=== PATIENT | female | born 1980 | race Caucasian/White ===

== ENCOUNTER 2018-03-18 16:38 | Inpatient (IN) | payer MEDICAID, SELFPAY ==
[2018-03-18 16:39] VITALS: BP 125/69; PULSE 90; RESP 16; TEMP 36.8; O2SAT 97; BMI 19.7
[2018-03-18] MEDS: LORazepam 2 MG/ML Syringe 1 MG IV (17:44)
[2018-03-18] MEDS: Ondansetron 4 MG/2 ML Vial IV (17:44)
[2018-03-18 17:49] LABS: Absolute Lymphocyte Count 1.94 X10^3/ul (0.83-4.51); Absolute Neutrophil Count 3.2 X10^3/uL (2.0-7.7); Basophil# 0.01 X10^3/uL; Basophil% 0.2 % (0-1); Eosinophil# 0.02 X10^3/uL; Eosinophils% 0.4 % (0-5); Hemoglobin 14.3 g/dl (12.0-15.0); Lymphocyte # 1.94 X10^3/ul (4.0); Lymphocyte % 35.3 % (19-41); Mean Corp Hgb Conc 34.9 g/gl (32-36); Mean Corpuscular Hgb 28.8 pg (27.0-32.0); Mean Corpuscular Volume 82.5 fL (81-99); Mean Platelet Vol. 8.9 fl (6.2-12.0); Monocyte# 0.33 X10^3/uL; Neutrophil # 3.18 X10^3/uL (2.7-7.7); Neutrophil % 57.7 % (47-70); POSITIVE COUNT NO; POSITIVE DIFFERENTIAL NO; POSITIVE MORPHOLOGY NO; Platelet Count 243 K/mm3 (150-450); RBC Distribution Width CV 14.1 % (11.6-14.6); Red Blood Count 4.97 M/mm3 (4.2-5.4); White Blood Count 5.5 K/mm3 (4.4-11.0)
--- NOTE | 2018-03-18 17:54 | ED.VISSUMM ---
- ER Visit Summary Date of Service: 03/18/18 Chief Complaint: Detox for heroin and alcohol History of Present Illness: The patient is a 38 F who presents for admission to [facility] for detox of heroin and alcohol. Patient has been in touch with them this week and was told to come to the emergency department for evaluation. Patient states that she last used heroin at 3 AM, and that she took half a shot of alcohol 4 hours prior to presentation due to symptoms from alcohol withdrawal. She is currently complaining of chills, sweating, abdominal pain, abdominal cramping, nausea, vomiting, diarrhea, leg and arm cramping, and anxiety. She has history of hysterectomy. Physical Examination: Vital signs: afebrile, hemodynamically stable, no hypoxia on room air General: well nourished, well developed, in no distress, appears mildly agitated Skin: warm, moist, no rash, no pallor HEENT: normocephalic and atraumatic; PERRL, EOMI, moist mucous membranes Cardiovascular: regular rate and rhythm without murmurs, no peripheral edema, 2+ pulses all distal extremities Respiratory: No increased work of breathing, lungs are clear to auscultation bilaterally, no rales, rhonchi or wheezing Abdominal: Abdomen is soft, nontender with normoactive bowel sounds, no guarding or rebound, no masses MSK: Moves all extremities, no deformities, normal strength, mild tremulousness of the hands Neuro: Awake and alert, oriented ?4. No facial droop, sensation and motor function intact and symmetric Psych: no SI/HI. Agitated Test Results: Abnormal Lab Results 03/18/18 03/18/18 03/18/18 17:40 17:40 17:40 WBC 5.5 RBC 4.97 Hgb 14.3 Hct 41.0 MCV 82.5 MCH 28.8 MCHC 34.9 RDW 14.1 RDW Differential 42.0 Plt Count 243 MPV 8.9 Immature Gran % (Auto) 0.400 Neut % (Auto) 57.7 Lymph % (Auto) 35.3 [place] % (Auto) 6.0 Eos % (Auto) 0.4 Baso % (Auto) 0.2 Absolute Neuts (auto) 3.2 Absolute Lymphs (auto) 1.94 Total Counted Not Reportable Sodium 141 Potassium 4.5 Chloride 105 Carbon Dioxide 30.0 Anion Gap 6 BUN 8 Creatinine 0.76 Estim Creat Clear Calc 79.14 Est GFR (MDRD) Af Amer 111 Est GFR (MDRD) Non-Af 92 BUN/Creatinine Ratio 10.6 Glucose 95 Calcium 9.5 Total Bilirubin 0.50 AST 23 ALT 31 Alkaline Phosphatase 104 Total Protein 8.6 H Albumin 3.8 Globulin 4.8 H Albumin/Globulin Ratio 0.8 L Urine Opiates Screen Urine Methadone Screen Ur Barbiturates Screen Ur Phencyclidine Scrn Ur Amphetamines Screen U Methamphetamin-MDMA U Benzodiazepines Scrn Urine Cocaine Screen U Cannabinoids Screen Ur Drug Screen Comment Ethyl Alcohol < 3.0 03/18/18 17:45 WBC RBC Hgb Hct MCV MCH MCHC RDW RDW Differential Plt Count MPV Immature Gran % (Auto) Neut % (Auto) Lymph % (Auto) [place] % (Auto) Eos % (Auto) Baso % (Auto) Absolute Neuts (auto) Absolute Lymphs (auto) Total Counted Sodium Potassium Chloride Carbon Dioxide Anion Gap BUN Creatinine Estim Creat Clear Calc Est GFR (MDRD) Af Amer Est GFR (MDRD) Non-Af BUN/Creatinine Ratio Glucose Calcium Total Bilirubin AST ALT Alkaline Phosphatase Total Protein Albumin Globulin Albumin/Globulin Ratio Urine Opiates Screen NEGATIVE Urine Methadone Screen NEGATIVE Ur Barbiturates Screen NEGATIVE Ur Phencyclidine Scrn NEGATIVE Ur Amphetamines Screen NEGATIVE U Methamphetamin-MDMA NEGATIVE U Benzodiazepines Scrn NEGATIVE Urine Cocaine Screen POSITIVE H U Cannabinoids Screen NEGATIVE Ur Drug Screen Comment Ethyl Alcohol Emergency Department Course and Treatment: Patient presented just prior to 5 PM, and was discussed briefly with front desk representative from [facility]. They are aware she was going to try to come in some day this week, and states that her insurance has been cleared. Patient was evaluated for withdrawal symptoms, and has a CINA of 17. She was given IV Ativan and Zofran to help with symptomatic relief and to help prevent alcohol withdrawal symptoms. No concerning findings on lab work. Patient's tox screen was positive for cocaine. Alcohol level negative. Patient was discussed with the hospitalist and admitted for management of her withdrawal symptoms until she can be evaluated by [facility] in the AM. Treatment Plan: [] Disposition: Admission Impression: Heroin and alcohol withdrawal/detox This note was generated with [employer] dictation software. It may contain incorrect words, spelling, and punctuation that were not noted in review of the chart prior to signing ED Disposition - Plan for ED Patient: Disposition: Acute Care Hospital [facility] Chief Complaint: Substance Abuse
--- NOTE | 2018-03-18 17:58 | ED.DCSUM_ITS ---
- ER Visit Summary Date of Service: 03/18/18 Chief Complaint: Detox for heroin and alcohol History of Present Illness: The patient is a 38 F who presents for admission to [facility] for detox of heroin and alcohol. Patient has been in touch with them this week and was told to come to the emergency department for evaluation. Patient states that she last used heroin at 3 AM, and that she took half a shot of alcohol 4 hours prior to presentation due to symptoms from alcohol withdrawal. She is currently complaining of chills, sweating, abdominal pain, abdominal cramping, nausea, vomiting, diarrhea, leg and arm cramping, and anxiety. She has history of hysterectomy. Physical Examination: Vital signs: afebrile, hemodynamically stable, no hypoxia on room air General: well nourished, well developed, in no distress, appears mildly agitated Skin: warm, moist, no rash, no pallor HEENT: normocephalic and atraumatic; PERRL, EOMI, moist mucous membranes Cardiovascular: regular rate and rhythm without murmurs, no peripheral edema, 2 + pulses all distal extremities Respiratory: No increased work of breathing, lungs are clear to auscultation bilaterally, no rales, rhonchi or wheezing Abdominal: Abdomen is soft, nontender with normoactive bowel sounds, no guarding or rebound, no masses MSK: Moves all extremities, no deformities, normal strength, mild tremulousness of the hands Neuro: Awake and alert, oriented ?4. No facial droop, sensation and motor function intact and symmetric Psych: no SI/HI. Agitated Test Results: Abnormal Lab Results 03/18/18 03/18/18 03/18/18 17:40 17:40 17:40 WBC 5.5 RBC 4.97 Hgb 14.3 Hct 41.0 MCV 82.5 MCH 28.8 MCHC 34.9 RDW 14.1 RDW Differential 42.0 Plt Count 243 MPV 8.9 Immature Gran % (Auto) 0.400 Neut % (Auto) 57.7 Lymph % (Auto) 35.3 [place] % (Auto) 6.0 Eos % (Auto) 0.4 Baso % (Auto) 0.2 Absolute Neuts (auto) 3.2 Absolute Lymphs (auto) 1.94 Total Counted Not Reportable Sodium 141 Potassium 4.5 Chloride 105 Carbon Dioxide 30.0 Anion Gap 6 BUN 8 Creatinine 0.76 Estim Creat Clear Calc 79.14 Est GFR (MDRD) Af Amer 111 Est GFR (MDRD) Non-Af 92 BUN/Creatinine Ratio 10.6 Glucose 95 Calcium 9.5 Total Bilirubin 0.50 AST 23 ALT 31 Alkaline Phosphatase 104 Total Protein 8.6 H Albumin 3.8 Globulin 4.8 H Albumin/Globulin Ratio 0.8 L Urine Opiates Screen Urine Methadone Screen Ur Barbiturates Screen Ur Phencyclidine Scrn Ur Amphetamines Screen U Methamphetamin-MDMA U Benzodiazepines Scrn Urine Cocaine Screen U Cannabinoids Screen Ur Drug Screen Comment Ethyl Alcohol < 3.0 03/18/18 17:45 WBC RBC Hgb Hct MCV MCH MCHC RDW RDW Differential Plt Count MPV Immature Gran % (Auto) Neut % (Auto) Lymph % (Auto) [place] % (Auto) Eos % (Auto) Baso % (Auto) Absolute Neuts (auto) Absolute Lymphs (auto) Total Counted Sodium Potassium Chloride Carbon Dioxide Anion Gap BUN Creatinine Estim Creat Clear Calc Est GFR (MDRD) Af Amer Est GFR (MDRD) Non-Af BUN/Creatinine Ratio Glucose Calcium Total Bilirubin AST ALT Alkaline Phosphatase Total Protein Albumin Globulin Albumin/Globulin Ratio Urine Opiates Screen NEGATIVE Urine Methadone Screen NEGATIVE Ur Barbiturates Screen NEGATIVE Ur Phencyclidine Scrn NEGATIVE Ur Amphetamines Screen NEGATIVE U Methamphetamin-MDMA NEGATIVE U Benzodiazepines Scrn NEGATIVE Urine Cocaine Screen POSITIVE H U Cannabinoids Screen NEGATIVE Ur Drug Screen Comment Ethyl Alcohol Emergency Department Course and Treatment: Patient presented just prior to 5 PM , and was discussed briefly with community representative from [facility]. They are aware she was going to try to come in some day this week, and states that her insurance has been cleared. Patient was evaluated for withdrawal symptoms, and has a CINA of 17. She was given IV Ativan and Zofran to help with symptomatic relief and to help prevent alcohol withdrawal symptoms. No concerning findings on lab work. Patient's tox screen was positive for cocaine. Alcohol level negative. Patient was discussed with the hospitalist and admitted for management of her withdrawal symptoms until she can be evaluated by [facility] in the AM. Treatment Plan: [] Disposition: Admission Impression: Heroin and alcohol withdrawal/detox This note was generated with [employer] dictation software. It may contain incorrect words, spelling, and punctuation that were not noted in review of the chart prior to signing ED Disposition - Plan for ED Patient: Disposition: Acute Care Hospital [facility] Chief Complaint: Substance Abuse
[2018-03-18 18:05] LABS: ALB/GLOB Ratio 0.8 RATIO (0.9-2.4); AST(SGOT) 23 U/L (15-37); Alanine Aminotransfer ALT/SGPT 31 U/L (13-56); Albumin, Serum 3.8 g/dL (3.2-5.0); Alkaline Phosphatase 104 U/L (45-117); Anion Gap 6 (5-15); BUN 8 mg/dL (7-18); BUN/Creat Ratio 10.6 RATIO (10-20); Calcium,Total 9.5 mg/dL (8.5-10.1); Chloride 105 mmol/L (98-107); Creatinine, Serum 0.76 mg/dL (0.55-1.02); EST Glomerular Filtration Rate 92 mL/min (>60); Est Glom Filt Rate - Afr Amer 111 mL/min (>60); Estimated Creatinine Clearance 79.14 ml/min; Globulin 4.8 g/dL (2.2-4.2); Glucose 95 mg/dL (74-106); Potassium 4.5 mmol/L (3.5-5.1); Protein, Total 8.6 g/dL (6.4-8.2); Sodium Level 141 mmol/L (136-145)
[2018-03-18 18:20] LABS: Amphetamine Urine VISTA NEGATIVE (<1000 ng/mL); Barbiturate Urine VISTA NEGATIVE (< 200 ng/mL); Benzodiazepine Urine VISTA NEGATIVE (< 200 ng/mL); Cocaine Urine VISTA POSITIVE (< 300 ng/mL); Ecstacy Urine VISTA NEGATIVE (< 500 ng/mL); Methadone Urine VISTA NEGATIVE (< 300 ng/mL); PCP Urine VISTA NEGATIVE (< 25 ng/mL); THC Urine VISTA NEGATIVE (< 50 ng/mL); Vista UDS pH Range 6
[2018-03-18 18:25] LABS: Alcohol, Blood (Medical)-Serum < 3.0 mg/dL
[2018-03-18] MEDS: LORazepam 1 MG Tablet PO (19:00)
[2018-03-18 19:02] VITALS: BP 104/65; PULSE 85; PULSE 90; RESP 18; O2SAT 95; O2SAT 96
--- NOTE | 2018-03-18 19:22 | PCM.HP.STD ---
Problem List (1) Alcohol withdrawal Status: Acute (2) Heroin withdrawal Status: Acute History of Present Illness Date of Admission: 03/18/18 Chief Complaint: heroin and alcohol withdrawal The patient is a 38 year old F who injects in snorts heroin drinks either 1/5 to a handle of vodka per day. Presents seeking treatment for withdrawal from both of these substances. Patient's last use of heroin was around 2-3 this morning as well as her typical consumption of alcohol. Patient was having significant anxiety and then was told by the Rudolph Gifford to drink a little bit more to take some the edge off of her withdrawal before coming into the program. Patient states that she drank about half of a shot before doing so. Patient was referred to the emergency room by Rudolph Gifford later in the afternoon. In the emergency room patient received a DPT shot, 2 mg of Ativan and Zofran. [] Past Medical History Medical History: Medical History (Last Updated 03/18/18 @ 19:25 by Chay Hoskins DO) History of radical hysterectomy Z90.710 Ovarian cancer C56.9 With metastasis to her stomach and liver. 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 Denies: Sinus Congestion, Sinus Drainage Cardiovascular: Denies: Chest Pain, Palpitations Respiratory: Denies: Cough, Shortness of Breath, Shortness of breath at rest Gastrointestinal: Reports: Nausea, - - Abdominal cramps Genitourinary: Denies: Dysuria, Hematuria Gynecological: Reports: - - No menstrual period status post hysterectomy Musculoskeletal: Reports: - - Diffuse myalgias. Denies: Joint Pain, Joint Tenderness Skin: Denies: Rash, Wounds Neurological: Denies: Numbness, Tingling, Focal weakness Psychiatric: Reports: Anxiety. Denies: Depression Endocrine: Denies: Change in Body Habitus Hematologic/ Lymphatic: Denies: Easy Bruising, Easy Bleeding, Hx of blood clot Comment: All review of systems are negative except as mentioned in the history of present illness and the other review of systems. VTE Information - Inpt Only VTE Present on Admission: No VTE Mechan Device Prophylaxis: None VTE Pharm Prophylaxis ordered?: No Patient Problems: Active and Suspected Problems Alcohol withdrawal (Acute) Heroin withdrawal (Acute) - Physical Exam General: Alert, - - Anxious. Afebrile. HEENT: Atraumatic, Normocephalic, - - No icterus Oral: Moist Mucosa, No Gingival or Mucosal Lesions/ Ulcerations Neck: No Nodes, Thyroid Normal Size and Texture Lungs: Clear to auscultation, Normal air movement, No rhonchi, No wheeze Cardiovascular: Regular rate, Regular Rhythm, Normal S1, Normal S2, No murmurs Abdomen: Bowel Sounds Present, Soft, Non Tender, Non-Distended, No Hepato-splenomegaly Extremities: No edema, No Calf Tenderness Skin: No rashes, No breakdown Musculoskeletal: No Tenderness to Palpation of Joints or Extremities, No Muscle Wasting Neurological: Neuro grossly intact, Sensory exam intact to light touch and pain, Coordination normal Psych/Mental Status: Appropriate, Anxious Vital Signs Temp Pulse Resp BP Pulse Ox 36.8 C 90 18 104/65 96 03/18/18 16:39 03/18/18 19:02 03/18/18 19:02 03/18/18 19:02 03/18/18 19:02 Assessment/Plan All Active Problems Alcohol withdrawal (Acute) Heroin withdrawal (Acute) 1. Acute alcohol withdrawal calculated CIWA of 21 Start Librium taper Did discuss with the patient that alcohol withdrawal symptoms can become very severe up to 96 hours after last drink but more commonly within the first several hours. I did discuss if there are things to get worse that we may have to escalate her therapy be on the Librium 2. Acute heroin withdrawal Difficult to tease out how much her symptoms are solely due to alcohol or heroin But given the large quantities of alcohol that she does drink alcohol is the most concerning Patient will be on the Subutex medical stabilization protocol And she will have additional medications to help with other somatic complaints 3. History of ovarian cancer Patient underwent a radical hysterectomy Had known metastatic lesions in her as well as her liver Patient states that she has been in remission for the past 9 months Recommend patient follow-up with her oncologist for follow-up but also for further evaluation of things such as breast cancer. It is unclear what the patient has BRCA or not 4. DVT prophylaxis: Low risk. Patient will be ambulatory. Code Visit Inpatient E&M: 64668 Init Hosp L3
[2018-03-18 19:27] VITALS: BMI 19.9
[2018-03-18 19:40] VITALS: BP 102/72; PULSE 82; RESP 14; TEMP 37; O2SAT 98
[2018-03-18] MEDS: traZODone 50 MG Tablet PO (20:24)
[2018-03-18] MEDS: Buprenorphine HCl 2 MG TAB.SUBL SL (20:24)
[2018-03-18] MEDS: Methocarbamol 750 MG Tablet PO (20:24)
[2018-03-18] MEDS: chlordiazePOXIDE 25 MG Capsule 50 MG PO (20:24)
[2018-03-18] MEDS: Dicyclomine 10 MG Capsule 20 MG PO (20:24)
[2018-03-18] MEDS: Lactated Ringers 1,000 ML 125 ML IV (20:38)
[2018-03-18] MEDS: Loperamide 2 MG Capsule PO (20:43)
[2018-03-18] MEDS: cloNIDine HCl 0.1 MG Tablet PO (20:43)
[2018-03-18 20:45] VITALS: BP 115/78; PULSE 85; RESP 16; TEMP 36.9
[2018-03-19] VITALS (8 sets, daily range): BP systolic 90–105; BP diastolic 51–66; PULSE 60–72; RESP 16–20; TEMP 36.6–37.1; O2SAT 97–100
[2018-03-19] MEDS: Buprenorphine HCl 2 MG TAB.SUBL SL ×3 (03:03→20:08)
[2018-03-19] MEDS: chlordiazePOXIDE 25 MG Capsule 50 MG PO ×4 (03:03→22:14)
[2018-03-19] MEDS: Ibuprofen 600 MG Tablet PO ×3 (03:13→22:08)
[2018-03-19] MEDS: Ondansetron ODT 4 MG Tablet PO ×3 (03:13→22:07)
[2018-03-19] MEDS: Methocarbamol 750 MG Tablet PO ×4 (03:13→22:08)
[2018-03-19] MEDS: Dicyclomine 10 MG Capsule 20 MG PO ×4 (03:13→22:08)
[2018-03-19] MEDS: Acetaminophen 500 MG Tablet PO ×2 (06:01→20:20)
[2018-03-19] MEDS: Pramipexole Di-HCl 0.25 MG Tablet PO ×2 (06:01→20:20)
[2018-03-19] MEDS: hydrOXYzine PAM 25 MG Capsule 50 MG PO ×3 (07:59→22:08)
[2018-03-19] MEDS: Loperamide 2 MG Capsule PO ×2 (07:59→13:43)
[2018-03-19] MEDS: cloNIDine HCl 0.1 MG Tablet PO ×2 (07:59→20:20)
--- NOTE | 2018-03-19 08:39 | PCM.PN.HOSP ---
Patient Problems: Active and Suspected Problems (Last Updated 03/18/18 @ 19:25 by Chay Hoskins DO) Alcohol withdrawal (Acute) Heroin withdrawal (Acute) Subjective: Patient was seen and examined. Complains of feeling achy. Denies fever, chills, SOB, nausea or vomiting. Vitals/I&O's: Vital Signs Temp Pulse Resp BP Pulse Ox 98.7 F 64 20 H 105/66 97 03/19/18 07:54 03/19/18 07:54 03/19/18 07:54 03/19/18 07:54 03/19/18 03:06 Oxygen Delivery Method Room Air Weight: 49.5 kg Body Mass Index (BMI) 19.9 Intake and Output for Last 24 Hours 03/17/18 03/18/18 03/19/18 23:59 23:59 23:59 Intake Total 1222 / 1222 Balance 1222 / 1222 General: Alert, Oriented x3, Cooperative, - - looks unwell HEENT: Atraumatic, PERRLA, EOMI, Normocephalic Oral: Dry Mucosa Neck: Supple, No JVD, Negative Carotid Bruits Lungs: Clear to auscultation, Normal air movement Cardiovascular: Regular rate, Regular Rhythm, Normal S1, Normal S2, No murmurs Abdomen: Bowel Sounds Present, Soft, Non Tender, Non-Distended, No Hepato-splenomegaly Extremities: No edema Skin: No rashes, No breakdown Musculoskeletal: No Tenderness to Palpation of Joints or Extremities Lymphatic: No Cervical, Supraclavicular, or Inguinal Adenopathy Neurological: Cranial nerves II-XII grossly intact, Neuro grossly intact Psych/Mental Status: Normal Affect, Appropriate Current Medications Acetaminophen (Tylenol) 500 mg PO Q4H PRN PRN PRN Reason: Temp > 100.4 F Last Admin: 03/19/18 06:01 Dose: 500 mg Buprenorphine HCl (Buprenorphine Hcl) 4 mg SL Q8H [facility] PRN Reason: Taper Stop: 03/21/18 23:59 Last Admin: 03/19/18 03:03 Dose: 4 mg Chlordiazepoxide (Librium) 50 mg PO Q6H [facility] PRN Reason: Taper Stop: 03/21/18 21:59 Last Admin: 03/19/18 08:06 Dose: 50 mg Clonidine (Catapres) 0.1 mg PO Q2H PRN PRN PRN Reason: Hot/Cold Sweats or Anxiety Last Admin: 03/19/18 07:59 Dose: 0.1 mg Dicyclomine HCl (Bentyl) 20 mg PO Q6H PRN PRN PRN Reason: abdominal discomfort Last Admin: 03/19/18 03:13 Dose: 20 mg Folic Acid (Folic Acid) [facility] Hydroxyzine Pamoate (Vistaril Pamoate Capsule) 50 mg PO Q6H PRN PRN PRN Reason: Mild Anxiety (score 1/3) Last Admin: 03/19/18 07:59 Dose: 50 mg Ibuprofen (Motrin) 600 mg PO Q8H PRN PRN PRN Reason: Mild-Moderate Pain (1-5/10) Last Admin: 03/19/18 03:13 Dose: 600 mg Loperamide HCl (Imodium) 2 - 4 mg PO UD PRN PRN Reason: LOOSE STOOLS Last Admin: 03/19/18 07:59 Dose: 2 mg Methocarbamol (Methocarbamol) 750 mg PO Q6H PRN PRN PRN Reason: Muscle Aches Last Admin: 03/19/18 03:13 Dose: 750 mg Multivitamins (Multivitamin) 1 tablet PO DAILYCM [facility] Nicotine (Nicoderm Cq (Pbkc)) 21 mg TRANSDERM. DAILY [facility] Last Admin: 03/18/18 20:24 Dose: 21 mg Nutritional Formula (Lactose Free) (Ensure Enlive) 120 ml PO 4X/DAY [facility] Ondansetron HCl (Zofran Odt) 4 mg PO Q6H PRN PRN PRN Reason: NAUSEA Last Admin: 03/19/18 03:13 Dose: 4 mg Pramipexole Dihydrochloride (Mirapex) 0.25 mg PO Q12H PRN PRN PRN Reason: Restless Legs Last Admin: 03/19/18 06:01 Dose: 0.25 mg Sodium Chloride () 5 - 30 ml IV UD PRN PRN Reason: SALINE FLUSH Thiamine HCl (Vitamin B1) 100 mg PO DAILYCM [facility] Trazodone HCl (Desyrel) 50 mg PO QHS [facility] Last Admin: 03/18/18 20:24 Dose: 50 mg Medical Necessity - Tobacco Use Smoking Status: Heavy Smoker (>10/day) Tobacco Use: Cigarettes Assessment/Plan All Active Problems (Last Updated 03/18/18 @ 19:25 by Chay Hoskins DO) Alcohol withdrawal (Acute) Heroin withdrawal (Acute) 38-year-old female with past medical history of polysubstance use disorder, heroin, alcohol, cocaine comes in with alcohol and heroin withdrawal symptoms for medical stabilization the [facility] protocol. 1. Acute alcohol and heroin withdrawal, CIWA score is high, patient's vitals are stable, being managed per protocol, will continue to monitor 2. Polysubstance use disorder, advised to quit,, hepatitis C panel pending 3. History of ovarian cancer, with metastases to liver, needs to follow-up with oncology 4. DVT prophylaxis with heparin subcu Code Visit Inpatient E&M: 15284 Subs Hosp L2
[2018-03-19] MEDS: Thiamine Hydrochloride 100 MG Tablet PO (09:45)
[2018-03-19] MEDS: Folic Acid 1 MG Tablet PO (09:45)
[2018-03-19] MEDS: Multivitamins,Therapeutic Tablet 1 TABLET PO (09:45)
[2018-03-19] MEDS: Heparin Injection (Vial) 5,000 UNIT/ML VIAL 5000 UNIT SC ×2 (13:44→22:09)
[2018-03-19 14:01] LABS: HIV - WCH Non-Reactive (Nonreactive)
--- NOTE | 2018-03-19 16:51 | CHAPLAIN ---
patient was sleeping at time of visit attempt
[2018-03-19] MEDS: traZODone 50 MG Tablet PO (22:09)
[2018-03-20] MEDS: Buprenorphine HCl 2 MG TAB.SUBL SL ×2 (04:12→12:26)
[2018-03-20 04:15] VITALS: BP 85/58; PULSE 53; RESP 16; TEMP 36.8
[2018-03-20 06:42] VITALS: BP 96/64; PULSE 59; RESP 16; TEMP 36.4; O2SAT 100
[2018-03-20] MEDS: chlordiazePOXIDE 25 MG Capsule 50 MG PO ×2 (06:44→14:26)
[2018-03-20] MEDS: Dicyclomine 10 MG Capsule 20 MG PO ×2 (06:50→14:26)
[2018-03-20] MEDS: Ondansetron ODT 4 MG Tablet PO ×2 (06:51→14:26)
[2018-03-20] MEDS: Methocarbamol 750 MG Tablet PO ×2 (06:51→14:26)
[2018-03-20] MEDS: Ibuprofen 600 MG Tablet PO (06:51)
[2018-03-20] MEDS: hydrOXYzine PAM 25 MG Capsule 50 MG PO ×2 (06:51→14:26)
[2018-03-20 06:59] LABS: Anion Gap 10 (5-15); BUN 9 mg/dL (7-18); BUN/Creat Ratio 13.2 RATIO (10-20); Calcium,Total 8.7 mg/dL (8.5-10.1); Chloride 114 mmol/L (98-107); Creatinine, Serum 0.68 mg/dL (0.55-1.02); EST Glomerular Filtration Rate 104 mL/min (>60); Est Glom Filt Rate - Afr Amer 126 mL/min (>60); Estimated Creatinine Clearance 89.37 ml/min; Glucose 90 mg/dL (74-106); Potassium 3.9 mmol/L (3.5-5.1); Sodium Level 147 mmol/L (136-145)
--- NOTE | 2018-03-20 07:16 | PCM.PN.HOSP ---
Patient Problems: Active and Suspected Problems (Last Updated 03/18/18 @ 19:25 by Chay Hoskins DO) Alcohol withdrawal (Acute) Heroin withdrawal (Acute) Subjective: Patient was seen and examined. Denies chest pain, dizziness, palpitations. Cramps in the legs are better. Objective: Physical exam: General: Alert, Oriented x3, Cooperative, - - looks unwell HEENT: Atraumatic, PERRLA, EOMI, Normocephalic Oral: Dry Mucosa Neck: Supple, No JVD, Negative Carotid Bruits Lungs: Clear to auscultation, Normal air movement Cardiovascular: Regular rate, Regular Rhythm, Normal S1, Normal S2, No murmurs Abdomen: Bowel Sounds Present, Soft, Non Tender, Non-Distended, No Hepato-splenomegaly Extremities: No edema Skin: No rashes, No breakdown Musculoskeletal: No Tenderness to Palpation of Joints or Extremities Lymphatic: No Cervical, Supraclavicular, or Inguinal Adenopathy Neurological: Cranial nerves II-XII grossly intact, Neuro grossly intact Psych/Mental Status: Normal Affect, Appropriate Vitals/I&O's: Vital Signs Temp Pulse Resp BP Pulse Ox 97.5 F L 59 L 16 96/64 100 03/20/18 06:42 03/20/18 06:42 03/20/18 06:42 03/20/18 06:42 03/20/18 06:42 Oxygen Delivery Method Room Air Weight: 49.5 kg Body Mass Index (BMI) 19.9 Intake and Output for Last 24 Hours 03/18/18 03/19/18 03/20/18 23:59 23:59 23:59 Intake Total 1522 / 1522 500 / 500 Balance 1522 / 1522 500 / 500 Laboratory Results 03/20/18 06:00: Sodium 147 H, Potassium 3.9, Chloride 114 H, Carbon Dioxide 23.0, Anion Gap 10, BUN 9, Creatinine 0.68, Estim Creat Clear Calc 89.37, Est GFR (MDRD) Af Amer 126, Est GFR (MDRD) Non-Af 104, BUN/Creatinine Ratio 13.2, Glucose 90, Calcium 8.7 Current Medications Acetaminophen (Tylenol) 500 mg PO Q4H PRN PRN PRN Reason: Temp > 100.4 F Last Admin: 03/19/18 20:20 Dose: 500 mg Buprenorphine HCl (Buprenorphine Hcl) 2 mg SL Q8H [facility] PRN Reason: Taper Stop: 03/21/18 23:59 Last Admin: 03/20/18 04:12 Dose: 2 mg Chlordiazepoxide (Librium) 50 mg PO Q8H [facility] PRN Reason: Taper Stop: 03/21/18 21:59 Last Admin: 03/20/18 06:44 Dose: 50 mg Clonidine (Catapres) 0.1 mg PO Q2H PRN PRN PRN Reason: Hot/Cold Sweats or Anxiety Last Admin: 03/19/18 20:20 Dose: 0.1 mg Dicyclomine HCl (Bentyl) 20 mg PO Q6H PRN PRN PRN Reason: abdominal discomfort Last Admin: 03/20/18 06:50 Dose: 20 mg Folic Acid ([facility] Acid) [facility] Last Admin: 03/19/18 09:45 Dose: 1 mg Heparin Sodium (Porcine) (Heparin Na) 5,000 unit SC Q8 [facility] Last Admin: 03/20/18 06:47 Dose: Not Given Hydroxyzine Pamoate (Vistaril Pamoate Capsule) 50 mg PO Q6H PRN PRN PRN Reason: Mild Anxiety (score 1/3) Last Admin: 03/20/18 06:51 Dose: 50 mg Ibuprofen (Motrin) 600 mg PO Q8H PRN PRN PRN Reason: Mild-Moderate Pain (1-5/10) Last Admin: 03/20/18 06:51 Dose: 600 mg Loperamide HCl (Imodium) 2 - 4 mg PO UD PRN PRN Reason: LOOSE STOOLS Last Admin: 03/19/18 13:43 Dose: 2 mg Methocarbamol (Methocarbamol) 750 mg PO Q6H PRN PRN PRN Reason: Muscle Aches Last Admin: 03/20/18 06:51 Dose: 750 mg Multivitamins (Multivitamin) [facility] Last Admin: 03/19/18 09:45 Dose: 1 tablet Nicotine (Nicoderm Cq (Pbkc)) 21 mg TRANSDERM. DAILY [facility] Last Admin: 03/19/18 09:45 Dose: 21 mg Nutritional Formula (Lactose Free) (Ensure Enlive) 120 ml PO 4X/DAY [facility] Last Admin: 03/19/18 22:14 Dose: 120 ml Ondansetron HCl (Zofran Odt) 4 mg PO Q6H PRN PRN PRN Reason: NAUSEA Last Admin: 03/20/18 06:51 Dose: 4 mg Pramipexole Dihydrochloride (Mirapex) 0.25 mg PO Q12H PRN PRN PRN Reason: Restless Legs Last Admin: 03/19/18 20:20 Dose: 0.25 mg Sodium Chloride () 5 - 30 ml IV UD PRN PRN Reason: SALINE FLUSH Thiamine HCl (Vitamin B1) 100 mg PO DAILYCM [facility] Last Admin: 03/19/18 09:45 Dose: 100 mg Trazodone HCl (Desyrel) 50 mg PO QHS [facility] Last Admin: 03/19/18 22:09 Dose: 50 mg Medical Necessity - Tobacco Use Smoking Status: Heavy Smoker (>10/day) Tobacco Use: Cigarettes Assessment/Plan All Active Problems (Last Updated 03/18/18 @ 19:25 by Chay Hoskins DO) Alcohol withdrawal (Acute) Heroin withdrawal (Acute) 38-year-old female with past medical history of polysubstance use disorder, heroin, alcohol, cocaine comes in with alcohol and heroin withdrawal symptoms for medical stabilization the [facility] protocol. 1. Acute alcohol and heroin withdrawal, CIWA score is high, will continue protocol, 2. Polysubstance use disorder, advised to quit. 3. Chronic hepatitis C, needs to follow-up in the outpatient. 4. History of ovarian cancer, with metastases to liver, needs to follow-up with oncology 5. DVT prophylaxis with heparin subcu Code Visit Inpatient E&M: 78994 Subs Hosp L2
[2018-03-20 10:00] VITALS: BP 92/57; PULSE 71; RESP 16; TEMP 36.6
[2018-03-20 10:31] LABS: Hep C Antibodies >11.0 s/co ratio (0.0-0.9)
[2018-03-20] MEDS: Multivitamins,Therapeutic Tablet 1 TABLET PO (10:37)
[2018-03-20] MEDS: Folic Acid 1 MG Tablet PO (10:37)
[2018-03-20] MEDS: Thiamine Hydrochloride 100 MG Tablet PO (10:37)
[2018-03-20] MEDS: Pramipexole Di-HCl 0.25 MG Tablet PO (10:37)
[2018-03-20] MEDS: Acetaminophen 500 MG Tablet PO (10:37)
[2018-03-20] MEDS: Loperamide 2 MG Capsule PO ×2 (10:38→14:35)
[2018-03-20 14:30] VITALS: BP 109/67; PULSE 73; RESP 16; TEMP 36.8
--- NOTE | 2018-03-20 15:51 | PCM.DC ---
- Discharge Diagnoses Reason(s) for Visit for Discharge Instructions: Alcohol and heroin withdrawal Allergies/Adverse Reactions: Allergies bupropion [From Wellbutrin] Allergy (Verified 03/18/18 16:42) Itching morphine Allergy (Verified 03/18/18 16:42) Itching nalbuphine [From Nubain] Allergy (Verified 03/18/18 16:42) Itching cephalexin [From Keflex] Adverse Reaction (Verified 03/18/18 16:43) Diarrhea Medications to take at Discharge NK [NK] 03/18/18 Primary Care Physician: Care Physician,No Primary [Primary Care Provider] - Test Results: Test results from this visit will be discussed in further detail at your follow-up appointment, if applicable.
--- NOTE | 2018-03-20 15:53 | PCM.DC.SUM ---
Discharge Date and Diagnosis Date of Admission: 03/18/18 Date of Discharge: 03/20/18 - Primary Discharge Diagnosis Acute alcohol withdrawal Acute opiate withdrawal Polysubstance use disorder Hospital Course and Treatment None Operations: None Procedures: None Summary of Care Provided: 38-year-old female with past medical history of polysubstance use disorder, heroin, alcohol, cocaine comes in with alcohol and heroin withdrawal symptoms for medical stabilization the [facility] protocol. 1. Acute alcohol and heroin withdrawal, managed under the [facility] protocol. She was fairly improving on the protocol. Patient left AMA without completing 3 days stay. 2. Polysubstance use disorder, advised to quit. 3. Chronic hepatitis C, needs to follow-up in the outpatient. 4. History of ovarian cancer, with metastases to liver, needs to follow-up with oncology Discharge Diet: No Restrictions Discharge Activity: Return to Normal Activity Home Medications: Medications to take at Discharge NK [NK] 03/18/18 Primary Care Physician: Care Physician,No Primary [Primary Care Provider] - Disposition: Against Medical Advice Minutes spent on discharge:: 25 Patient Condition:: Stable Medical Necessity - Tobacco Use Smoking Status: Heavy Smoker (>10/day) Tobacco Use: Cigarettes Meaningful Use Info Meaningful Use Diagnoses (Choose all that apply): None applicable Code Visit Inpatient E&M: 42226 Disch Hosp
== END 2018-03-20 15:46 | disposition left against medical advice (07) | DRG 433 ==
LOC: ED 17:33 → MS2 19:02
PROVIDERS: Emergency Provider Emergency Medicine; Visit Provider Internal Medicine
DX: F10.239 Alcohol dependence with withdrawal, unspecified (principal); B18.2 Chronic viral hepatitis C; C78.7 Secondary malignant neoplasm of liver and intrahepatic bile duct; F11.23 Opioid dependence with withdrawal; Z85.43 Personal history of malignant neoplasm of ovary; F19.90 Other psychoactive substance use, unspecified, uncomplicated; F17.210 Nicotine dependence, cigarettes, uncomplicated; Z90.710 Acquired absence of both cervix and uterus
CPT/HCPCS: 36415; 80048; 80053; 80307; 80320; 85025; 86703; 86803; 97802; 99282; J7120; A4216; G0480; J2405